=== PATIENT | female | born 1980 | race Caucasian/White ===

== ENCOUNTER 2019-02-15 01:14 | Emergency (ER) | payer OTHER ==
[2019-02-15] MEDS ORDERED: FAMOTIDINE 20 MG/50 ML IVPB 20 MG/50 ML MG IVPB ONE (01:20)
[2019-02-15] MEDS ORDERED: ACETAMINOPHEN 1000 MG/100 ML VIAL (NON FORMULARY) IVPB ONE (01:20)
[2019-02-15] MEDS ORDERED: ONDANSETRON 4 MG/2 ML VIAL IVPB ONE (01:20)
[2019-02-15] MEDS ORDERED: morphine CARPU-JECT 2 MG/1 ML DISP.SYRIN IVPUSH ONE ×2 (01:21→01:34)
[2019-02-15] MEDS ORDERED: SODIUM CHLORIDE 0.9% 500 ML INFUS.BAG IV ONE (01:21)
[2019-02-15] MEDS ORDERED: ACETAMINOPHEN INJECTION 100 ML IVPB ONE (01:21)
[2019-02-15] MEDS ORDERED: SIMETHICONE 80 MG TAB.CHEW (FP) PO ONE (01:22)
[2019-02-15] MEDS ORDERED: ONDANSETRON 4 MG/2 ML VIAL ONE (01:22)
[2019-02-15] MEDS ORDERED: MAG HYDROX/AL HYDROX/SIMETH 30 ML UNIT-DOSE CUP PO ONE (01:23)
--- NOTE | 2019-02-15 01:23 | PDOC ---
History of Present Illness - General Chief Complaint: Pain, Acute Stated Complaint: ABDOMINAL PAIN Time Seen by Provider: 02/15/19 01:23 History Source: Patient Exam Limitations: No Limitations - History of Present Illness Initial Comments: 02/15/19 01:32 Pt is approx 14 weeks by LMP and today after [employer] dinner, she feels lower abd pain. No vag bleed. She is M1; States that she has no PMHx and no PSHx. Pt vomited in the ER and she complains of lower abd pain. Past History - Travel Traveled outside of the country in the last 30 days: No Close contact w/someone who was outside of country & ill: No - Past Medical History Allergies/Adverse Reactions: Allergies Allergy/AdvReac Type Severity Reaction Status Date / Time Penicillins Allergy Verified 02/15/19 01:17 Home Medications: Ambulatory Orders Folic Acid 1 mg PO DAILY 02/15/19 Review of Systems - Review of Systems Constitutional: No: Symptoms Reported, See HPI, Chills, Diaphoresis, Fever, Loss of Appetite, Malaise, Night Sweats, Weakness, Weight Stable, Unintentional Wgt. Loss, Unexplained wgt Loss, Other HEENTM: No: Symptoms Reported, See HPI, Eye Pain, Blurred Vision, Tearing, Recent change in vision, Double Vision, Cataracts, Ear Pain, Ocular Prothesis, Ear Discharge, Nose Pain, Nose Congestion, Tinnitus, Nose Bleeding, Hearing Loss , Throat Pain, Throat Swelling, Mouth Pain, Dental Problems, Difficulty Swallowing, Mouth Swelling, Other Respiratory: No: Symptoms reported, See HPI, Cough, Orthopnea, Shortness of Breath, SOB with Exertion, SOB at Rest, Stridor, Wheezing, Productive cough, Hemoptysis, Other Cardiac (ROS): No: Symptoms Reported, See HPI, Chest Pain, Edema, Irregular Heart Rate, Lightheadedness, Palpitations, Syncope, Chest Tightness, Other ABD/GI: Yes: Abdominal Distended, Vomiting, Abdominal cramping. No: Symptoms Reported, See HPI, Abd. Pain w/ defecation, Blood Streaked Bowels, Constipated, Diarrhea, Difficulty Swallowing, Nausea, Poor Appetite, Poor Fluid Intake, Rectal Bleeding, Indigestion, Tarry Stools, Other : No: Symptoms Reported, See HPI, Burning, Dysuria, Discharge, Frequency, Flank Pain, Hematuria, Incontinence, Pain, Urgency, Testicular Mass, Testicular Swelling, Lesions, Testicular Pain, Other Musculoskeletal: No: Symptoms Reported, See HPI, Back Pain, Gout, Joint Pain, Joint Swelling, Muscle Pain, Muscle Weakness, Neck Pain, Joint Stiffness, Other Integumentary: No: Symptoms Reported, See HPI, Bruising, Change in Color, Change in Hair/Nails, Dryness, Erythema, Flushing, Lesions, Lumps, Pallor, Pruritus, Rash, Sweating, Other Neurological: No: Symptoms reported, See HPI, Headache, Numbness, Paresthesia, Pre-Existing Deficit, Seizure, Tingling, Tremors, Weakness, Unsteady Gait, Ataxia, Dizziness, Other Endocrine: No: Symptoms Reported, See HPI, Excessive Sweating, Flushing, Intolerance to Cold, Intolerance to Heat, Increased Hunger, Increased Thirst, Increased Urine, Unexplained Weight Gain, Unexplained Weight Loss, Change in Weight, Other Hematologic/Lymphatic: No: Symptoms Reported, See HPI, Anemia, Blood Clots, Easy Bleeding, Easy Bruising, Bleeding Diathesis, Lymph Node Abnormalities, Swollen Glands, Other *Physical Exam - Physical Exam General Appearance: Yes: Nourished, Moderate Distress HEENT: positive: EOMI, ELIAS, Normal ENT Inspection, Normal Voice, Symmetrical, TMs Normal, Pharynx Normal Neck: positive: Supple Respiratory/Chest: positive: Lungs Clear, Normal Breath Sounds Cardiovascular: positive: Regular Rhythm, Regular Rate, S1, S2 Gastrointestinal/Abdominal: positive: Flat, Guarding, Rebound, Tenderness ( lower abdominal gassiness) Musculoskeletal: positive: Normal Inspection. 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, Fully Oriented, Alert, Normal Mood/ Affect, Normal Response, Motor Strength 5/5 ED Treatment Course - LABORATORY CBC & Chemistry Diagram: 02/15/19 01:40 02/15/19 01:40 - RADIOLOGY Radiology Studies Ordered: Category Date Time Status <14WKS US [US] Stat Ultrasound 02/15/19 01:21 Ordered Medical Decision Making - Medical Decision Making 02/15/19 02:28 CBC is normal 02/15/19 02:28 UA pending 02/15/19 02:32 Patient Name: PAUL RUEDA THIS IS 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 Rule out ectopic . COMPARISON: None. FINDINGS: There is a very small, 2.7 mm fluid collection in endometrial canal (closest to the fundus). The collection is too small to determine whether or not this is a very early gestational sac. Correlate with follow-up ultrasound and beta hCG to distinguish between very early normal intrauterine gestation, failed gestation, and ectopic gestation. Right ovary contains small cysts/follicles. Right ovary is normal size measuring 2.3 cm x 1.5 cm x 1.6 cm. There is a 9 mm x 4.3 mm x 8.7 mm left ovarian cyst. Left ovary is normal size measuring 2.5 cm x 1.4 cm x 3.2 cm. Nabothian cyst incidentally noted. Very small amount of free fluid in the pelvic [place] 02/15/19 02:57 Pt has a BHCG of 985. Chem is otherwise normal. 02/15/19 02:58 UA pending. Pt will be sent home. Likely gas pain; possible ovarian cyst pain. Discharge - Discharge Information Problems reviewed: Yes Clinical Impression/Diagnosis: Gas pain Condition: Stable Disposition: HOME - Follow up/Referral - Patient Discharge Instructions Patient Printed Discharge Instructions: DI for Dyspepsia - Post Discharge Activity
[2019-02-15 01:40] VITALS: BP 133/73; PULSE 66; TEMP 98; BMI 21.4
[2019-02-15] MEDS ORDERED: SIMETHICONE 80 MG TAB.CHEW (FP) ONE (02:17)
[2019-02-15 02:19] LABS: BASO % 0.3 % (0-2.0); EOS % 0.8 % (0-4.5); HEMOGLOBIN 13.8 GM/dL (10.7-15.3); LYMPH % 16.7 % (8-40); MCH 33.4 pg (25.7-33.7); MCHC 33.6 g/dl (32.0-36.0); MEAN CELL VOLUME 99.2 fl (80-96); MEAN PLT VOLUME 8.6 fl (7.5-11.1); MONO % 7.3 % (3.8-10.2); NEUT % 74.9 % (42.8-82.8); PLATELET COUNT 187 K/MM3 (134-434); RBC 4.13 M/mm3 (3.60-5.2); RDW 12.3 % (11.6-15.6)
[2019-02-15 02:41] LABS: BILIRUBIN,TOTAL 0.3 mg/dL (0.2-1); BLOOD UREA NITROGEN 14.1 mg/dL (7-18); CALCIUM 9.1 mg/dL (8.5-10.1); CREATININE 0.8 mg/dL (0.55-1.3); POTASSIUM 3.8 mmol/L (3.5-5.1)
[2019-02-15 03:31] LABS: HYALINE CASTS 1 /lpf (0-8); PH,URINE 6.5 (5.0-8.0); URINE APPEARANCE CLEAR; URINE BACTERIA 4.1 /hpf (NEGATIVE); URINE BILIRUBIN NEGATIVE (NEGATIVE); URINE COLOR YELLOW; URINE GLUCOSE (UA) NEGATIVE (NEGATIVE); URINE KETONE 2+ (NEGATIVE); URINE LEUK ESTERASE NEGATIVE (NEGATIVE); URINE NITRITE NEGATIVE (NEGATIVE); URINE PROTEIN 1+ (NEGATIVE); URINE RBC 285 /hpf (0-4); URINE UROBILINOGEN 0.2 mg/dL (0.2-1.0); URINE WBC 1 /hpf (0-5)
== END 2019-02-15 03:03 | disposition home or self-care (01) ==
LOC: FER 01:14
PROC: 3E033NZ Introduction of Analgesics, Hypnotics, Sedatives into Peripheral Vein, Percutaneous Approach (ICD-10-PCS; principal; 2019-02-15)
PROC: 3E0337Z Introduction of Electrolytic and Water Balance Substance into Peripheral Vein, Percutaneous Approach (ICD-10-PCS; 2019-02-15)
PROC: 3E033GC Introduction of Other Therapeutic Substance into Peripheral Vein, Percutaneous Approach (ICD-10-PCS; 2019-02-15)
DX: O26.892 Other specified pregnancy related conditions, second trimester (principal); Z3A.14 14 weeks gestation of pregnancy; R14.1 Gas pain; N83.202 Unspecified ovarian cyst, left side; N83.201 Unspecified ovarian cyst, right side; Z88.0 Allergy status to penicillin
CPT/HCPCS: 36415; 76801-TC; 80053; 81003; 81025; 84702; 85025; 99282-25; J0131